=== PATIENT | male | born 1990 | race Caucasian/White ===

== ENCOUNTER 2020-05-02 10:04 | Emergency (ER) | payer OTHER ==
[2020-05-02 10:13] VITALS: TEMP 98.4
--- NOTE | 2020-05-02 11:12 | CT ---
EXAMINATION TYPE: CT brain wo con DATE OF EXAM: 05/02/2020 COMPARISON: NONE HISTORY: right side weakness and facial numbness CT DLP: 1099.4 mGycm Automated exposure control for dose reduction was used. FINDINGS: Central structures are midline. There is no evidence of hydrocephalus. No acute focal lesion, mass ef fect or midline shift is seen. I do not see evidence of intracranial blood. Visualized portions of the paranasal sinuses and mastoids are clear. The bony calvarium is intact. IMPRESSION: NORMAL CT SCAN OF THE BRAIN.
[2020-05-02 11:21] LABS: Basophils # (A) 0.1 k/uL (0-0.2); Basophils % (A) 1 %; Eosinophils # (A) 0.2 k/uL (0-0.7); Eosinophils % (A) 3 %; HCT 43.5 % (39.0-53.0); HGB 15.1 gm/dL (13.0-17.5); Lymphocytes % (A) 38 %; MCH 31.6 pg (25.0-35.0); MCHC 34.7 g/dL (31.0-37.0); MCV 91.1 fL (80.0-100.0); Mean Platelet Volume 7.8; Monocytes # (A) 0.3 k/uL (0-1.0); Monocytes % (A) 6 %; Neutrophils # (A) 2.6 k/uL (1.3-7.7); Neutrophils % (A) 50 %; Platelet Count 218 k/uL (150-450); RBC 4.78 m/uL (4.30-5.90); RDW 12.4 % (11.5-15.5); WBC 5.2 k/uL (3.8-10.6)
[2020-05-02 11:26] LABS: Partial Thromboplastin Time 26.4 sec (22.0-30.0); Prothrombin Time 10.6 sec (9.0-12.0)
[2020-05-02 11:28] LABS: ALT 30 U/L (4-49); AST 25 U/L (17-59); African American GFR (CKD) >90 (>60 ml/min/1.73 sqM); Albumin 4.4 g/dL (3.5-5.0); Alkaline Phosphatase 80 U/L (38-126); Anion Gap 9 mmol/L; Blood Urea Nitrogen 10 mg/dL (9-20); Calcium 9.6 mg/dL (8.4-10.2); Carbon Dioxide 25 mmol/L (22-30); Chloride 106 mmol/L (98-107); Glucose 92 mg/dL (74-99); Non-African American GFR(CKD) >90 (>60 ml/min/1.73 sqM); Potassium 4.2 mmol/L (3.5-5.1); Sodium 140 mmol/L (137-145); Total Bilirubin 0.9 mg/dL (0.2-1.3); Total Protein 7.7 g/dL (6.3-8.2)
--- NOTE | 2020-05-02 11:35 | ED ---
General Adult HPI - General Chief complaint: Neuro Symptoms/Deficit Stated complaint: chest pain, rt sided facial numbness Time Seen by Provider: 05/02/20 10:14 Source: patient Mode of arrival: wheelchair Limitations: no limitations - History of Present Illness Initial comments: Patient is a 29-year-old male presenting to the emergency Department with c omplaints of numbness to the right side of his face as well as weakness to his right arm. Patient states the symptoms started yesterday evening at approximately 11 PM. He states he was playing games when he noticed his right arm had a pins and needles feeling to it as well as a change in sensation on the right side of his face. He denies any injuries to his head or arm. He denies any previous surgeries. He denies any pain anywhere. He denies chest pain, shortness of breath, abdominal pain, nausea, vomiting, lightheadedness. He denies having a headache, blurry vision. Patient denies any pertinent past medical history, he takes no medications. He admits to history of marijuana use, no other drug use. His father is here with him now and states that his father does have a history of heart disease at a young age. Patient does admit to going through a divorce at this time and very stressed. No further complaints at this time. Upon arrival to the ER, his vitals are stable. - Related Data Home Medications Medication Instructions Recorded Confirmed No Known Home Medications 05/02/20 05/02/20 Allergies Allergy/AdvReac Type Severity Reaction Status Date / Time No Known Allergies Allergy Verified 05/02/20 10:52 Review of Systems ROS Statement: Those systems with pertinent positive or pertinent negative responses have been documented in the HPI. ROS Other: All systems not noted in ROS Statement are negative. Past Medical History Past Medical History: No Reported History History of Any Multi-Drug Resistant Organisms: None Reported Past Surgical History: No Surgical Hx Reported Past Psychological History: No Psychological Hx Reported Smoking Status: Current some day smoker Past Alcohol Use History: None Reported Past Drug Use History: Marijuana General Exam - General Exam Comments Initial Comments: GENERAL: Well-appearing, well-nourished and in no acute distress, appears mildly anxious. HEAD: Atraumatic, normocephalic. EYES: Pupils equal round and reactive to light, extraocular movements intact, sclera anicteric, conjunctiva are normal. ENT: TMs normal, nares patent, oropharynx clear without exudates. Moist mucous membranes. NECK: Normal range of motion, supple without lymphadenopathy or JVD. LUNGS: Breath sounds clear to auscultation bilaterally and equal. No wheezes rales or rhonchi. HEART: Regular rate and rhythm without murmurs, rubs or gallops. ABDOMEN: Soft, nontender, normoactive bowel sounds. No guarding, no rebound. No masses appreciated. : Deferred EXTREMITIES: Normal range of motion, no pitting or edema. No clubbing or cyanosis. PSYCH: Anxious. SKIN: Warm, Dry, normal turgor, no rashes or lesions noted. Limitations: no limitations Neurological exam: Present: alert, oriented X3, CN II-XII intact, normal gait, reflexes normal Expanded Patient oriented to: Present: person, place, time Speech: Present: fluid speech Cranial nerves: EOM's Intact: Normal, Tongue Deviation: Normal, Nystagmus: Normal, Facial Sensation: Abnormal Right (Patient states "feels different on the right than on the left.") Cerebellar function: Finger to Nose: Normal, Heel to Dumont: Normal, Romberg: Normal Upper motor neuron: Pronator Drift: Normal Sensory exam: Upper Extremity Light Touch: Normal, Lower Extremity Light Touch: Normal Motor strength exam: RUE: 5, LUE: 5, RLE: 5, LLE: 5 Course Vital Signs 05/02/20 05/02/20 05/02/20 10:08 11:58 13:12 Temperature 98.4 F Pulse Rate 92 60 77 Respiratory 18 16 18 Rate Blood Pressure 135/90 127/80 125/88 O2 Sat by Pulse 100 99 98 Oximetry 05/02/20 13:13 Temperature 98.4 F Pulse Rate 77 Respiratory 18 Rate Blood Pressure 125/88 O2 Sat by Pulse 98 Oximetry EKG Findings - EKG Comments: EKG Findings:: Normal sinus rhythm with sinus arrhythmia, normal ECG, no signs of acute ischemia. Ventricular rate 73, HI interval 148, QT 360. Medical Decision Making - Medical Decision Making Patient is a 29-year-old male here with complaints of right-sided facial numbness, right arm weakness since last night. Vital signs are stable. Patient seems anxious upon arrival. Patient's exam reveals no acute neuro deficits. His strength is 5 out of 5 bilaterally upper and lower extremities. He states he does have decreased sensation with palpation of the right side of the cheek. No other acute findings on exam. He denies any pain anywhere. EKG reveals no acute finding. Lab work shows no acute abnormalities, troponin is normal. Urine shows no signs of infection, urine drug screen is only positive for marijuana. The head shows no acute findings. Patient was given some fluids. I discussed these findings with the patient. We discussed that his symptoms may be related to acute anxiety, increase in stress. I did recommend following up with the PCP. Patient was given a referral for her PCP. He is stable for discharge. He is in agreement with this plan of care. Return parameters were discussed with the patient and he verbalized understanding. Case discussed with Dr. Paula. - Lab Data Result diagrams: 05/02/20 10:55 05/02/20 10:55 Lab Results 05/02/20 05/02/20 05/02/20 Range/Units 10:55 10:55 10:55 WBC 5.2 (3.8-10.6) k/uL RBC 4.78 (4.30-5.90) m/uL Hgb 15.1 (13.0-17.5) gm/dL Hct 43.5 (39.0-53.0) % MCV 91.1 (80.0-100.0) fL MCH 31.6 (25.0-35.0) pg MCHC 34.7 (31.0-37.0) g/dL RDW 12.4 (11.5-15.5) % Plt Count 218 (150-450) k/uL Neutrophils % 50 % Lymphocytes % 38 % Monocytes % 6 % Eosinophils % 3 % Basophils % 1 % Neutrophils # 2.6 (1.3-7.7) k/uL Lymphocytes # 2.0 (1.0-4.8) k/uL Monocytes # 0.3 (0-1.0) k/uL Eosinophils # 0.2 (0-0.7) k/uL Basophils # 0.1 (0-0.2) k/uL PT 10.6 (9.0-12.0) sec INR 1.0 (<1.2) APTT 26.4 (22.0-30.0) sec Sodium 140 (137-145) mmol/L Potassium 4.2 (3.5-5.1) mmol/L Chloride 106 (98-107) mmol/L Carbon Dioxide 25 (22-30) mmol/L Anion Gap 9 mmol/L BUN 10 (9-20) mg/dL Creatinine 0.75 (0.66-1.25) mg/dL Est GFR (CKD-EPI)AfAm >90 (>60 ml/min/1.73 sqM) Est GFR (CKD-EPI)NonAf >90 (>60 ml/min/1.73 sqM) Glucose 92 (74-99) mg/dL Calcium 9.6 (8.4-10.2) mg/dL Total Bilirubin 0.9 (0.2-1.3) mg/dL AST 25 (17-59) U/L ALT 30 (4-49) U/L Alkaline Phosphatase 80 (38-126) U/L Troponin I (0.000-0.034) ng/mL Total Protein 7.7 (6.3-8.2) g/dL Albumin 4.4 (3.5-5.0) g/dL Urine Color Urine Appearance (Clear) Urine pH (5.0-8.0) Ur Specific [place] (1.001-1.035) Urine Protein (Negative) Urine Glucose (UA) (Negative) Urine Ketones (Negative) Urine Blood (Negative) Urine Nitrite (Negative) Urine Bilirubin (Negative) Urine Urobilinogen (<2.0) mg/dL Ur Leukocyte Esterase (Negative) Urine RBC (0-5) /hpf Amorphous Sediment (None) /hpf Urine Bacteria (None) /hpf Urine Opiates Screen (NotDetected) Ur Oxycodone Screen (NotDetected) Urine Methadone Screen (NotDetected) Ur Propoxyphene Screen (NotDetected) Ur Barbiturates Screen (NotDetected) U Tricyclic Antidepress (NotDetected) Ur Phencyclidine Scrn (NotDetected) Ur Amphetamines Screen (NotDetected) U Methamphetamines Scrn (NotDetected) U Benzodiazepines Scrn (NotDetected) Urine Cocaine Screen (NotDetected) U Marijuana (THC) Screen (NotDetected) 05/02/20 05/02/20 Range/Units 10:55 11:20 WBC (3.8-10.6) k/uL RBC (4.30-5.90) m/uL Hgb (13.0-17.5) gm/dL Hct (39.0-53.0) % MCV (80.0-100.0) fL MCH (25.0-35.0) pg MCHC (31.0-37.0) g/dL RDW (11.5-15.5) % Plt Count (150-450) k/uL Neutrophils % % Lymphocytes % % Monocytes % % Eosinophils % % Basophils % % Neutrophils # (1.3-7.7) k/uL Lymphocytes # (1.0-4.8) k/uL Monocytes # (0-1.0) k/uL Eosinophils # (0-0.7) k/uL Basophils # (0-0.2) k/uL PT (9.0-12.0) sec INR (<1.2) APTT (22.0-30.0) sec Sodium (137-145) mmol/L Potassium (3.5-5.1) mmol/L Chloride (98-107) mmol/L Carbon Dioxide (22-30) mmol/L Anion Gap mmol/L BUN (9-20) mg/dL Creatinine (0.66-1.25) mg/dL Est GFR (CKD-EPI)AfAm (>60 ml/min/1.73 sqM) Est GFR (CKD-EPI)NonAf (>60 ml/min/1.73 sqM) Glucose (74-99) mg/dL Calcium (8.4-10.2) mg/dL Total Bilirubin (0.2-1.3) mg/dL AST (17-59) U/L ALT (4-49) U/L Alkaline Phosphatase (38-126) U/L Troponin I <0.012 (0.000-0.034) ng/mL Total Protein (6.3-8.2) g/dL Albumin (3.5-5.0) g/dL Urine Color [place] Urine Appearance Slightly Cloudy (Clear) Urine pH 8.0 (5.0-8.0) Ur Specific [place] 1.005 (1.001-1.035) Urine Protein 1+ (Negative) Urine Glucose (UA) Negative (Negative) Urine Ketones Negative (Negative) Urine Blood Negative (Negative) Urine Nitrite Negative (Negative) Urine Bilirubin Negative (Negative) Urine Urobilinogen <2.0 (<2.0) mg/dL Ur Leukocyte Esterase Negative (Negative) Urine RBC <1 (0-5) /hpf Amorphous Sediment Occasional H (None) /hpf Urine Bacteria Rare H (None) /hpf Urine Opiates Screen Not Detected (NotDetected) Ur Oxycodone Screen Not Detected (NotDetected) Urine Methadone Screen Not Detected (NotDetected) Ur Propoxyphene Screen Not Detected (NotDetected) Ur Barbiturates Screen Not Detected (NotDetected) U Tricyclic Antidepress Not Detected (NotDetected) Ur Phencyclidine Scrn Not Detected (NotDetected) Ur Amphetamines Screen Not Detected (NotDetected) U Methamphetamines Scrn Not Detected (NotDetected) U Benzodiazepines Scrn Not Detected (NotDetected) Urine Cocaine Screen Not Detected (NotDetected) U Marijuana (THC) Screen Detected H (NotDetected) Disposition Clinical Impression: Pins and needles sensation, Anxiety Disposition: HOME SELF-CARE Condition: Stable Instructions (If sedation given, give patient instructions): Anxiety (ED) Additional Instructions: Please return to the Emergency Department if symptoms worsen or any other concerns. Follow-up with PCP as discussed. Is patient prescribed a controlled substance at d/c from ED?: No Referrals: None,Stated [Primary Care Provider] - 1-2 days Nancy Marte MD [REFERRING] - 1-2 days
[2020-05-02] MEDS ORDERED: SODIUM CHLORIDE 0.9% 500 ML 500 ML IV STA (11:43)
[2020-05-02 12:15] LABS: Amphetamine Screen,Urine Not Detected (NotDetected); Barbiturate Screen,Urine Not Detected (NotDetected); Benzodiazepines Screen,Urine Not Detected (NotDetected); Cocaine Screen,Urine Not Detected (NotDetected); Methadone Screen, Urine Not Detected (NotDetected); Opiate Screen,Urine Not Detected (NotDetected); Oxycodone Screen, Urine Not Detected (NotDetected); Phencyclidine Screen,Urine Not Detected (NotDetected); Tricyclic Antidepressant,Urine Not Detected (NotDetected); Urn Cannabinoid Scrn Detected (NotDetected)
[2020-05-02 13:05] LABS: Amorphous Sediment,Urine Occasional /hpf; Bacteria,Urine Rare /hpf; RBC,Urine <1 /hpf (0-5)
[2020-05-02 13:13] VITALS: BP 125/88; PULSE 77; RESP 18
[2020-05-02 13:22] LABS: Appearance,Urine Slightly Cloudy (Clear); Color,Urine Amber; Specific Gravity,Urine 1.005 (1.001-1.035)
[2020-05-02 13:23] LABS: Bilirubin,Urine Negative (Negative); Blood,Urine Negative (Negative); Glucose,Urine (UA) Negative (Negative); Ketones,Urine Negative (Negative); Nitrite,Urine Negative (Negative); Protein,Urine 1+ (Negative); Urobilinogen,Urine <2.0 mg/dL (<2.0)
[2020-05-02 13:24] LABS: Leukocyte Esterase,Urine Negative (Negative)
== END 2020-05-02 13:16 | disposition home or self-care (01) ==
LOC: EC 10:04
DX: R20.2 Paresthesia of skin (principal); F41.9 Anxiety disorder, unspecified; R07.9 Chest pain, unspecified; R53.1 Weakness; R20.0 Anesthesia of skin; F17.200 Nicotine dependence, unspecified, uncomplicated
CPT/HCPCS: 36415; 70450; 80053; 80306; 81001; 84484; 85025; 85610; 85730; 93005; 96360; 99285